=== PATIENT | female | born 1945 | race Asian ===

== ENCOUNTER 2024-05-28 09:44 | Day surgery (SDC) | payer MEDICARE ==
[~2024-05-28] VITALS: Ht 157.5 cm; Wt 53.2 kg
[~2024-05-28 09:44] MED LIST: Lactated Ringer's 1,000 ML IV ONE; Lidocaine 2% 5 ML SDV ONE; Lidocaine HCl/Pf 1% 5 ML VIAL ONE; Methylene Blue 1% 100 MG/10 ML VIAL ONE; propofoL 40 ML IV ONE
[2024-05-28] MEDS ORDERED: ELIQUIS5 M2 PO (10:52)
[2024-05-28] MEDS ORDERED: Lactated Ringer's 1,000 ML IV ONE ×2 (11:08)
[2024-05-28 12:35] VITALS: BP 92/67
== END 2024-05-28 12:39 | disposition home or self-care (01) ==
LOC: ORSCSDS 09:44
PROVIDERS: Surgery
PROC: 0DBL8ZX Excision of Transverse Colon, Via Natural or Artificial Opening Endoscopic, Diagnostic (ICD-10-PCS; principal; 2024-05-28 11:15)
PROC: 0DBM8ZX Excision of Descending Colon, Via Natural or Artificial Opening Endoscopic, Diagnostic (ICD-10-PCS; principal; 2024-05-28 11:15)
PROC: 0DBH8ZX Excision of Cecum, Via Natural or Artificial Opening Endoscopic, Diagnostic (ICD-10-PCS; principal; 2024-05-28 11:15)
PROC: 0DBK8ZX Excision of Ascending Colon, Via Natural or Artificial Opening Endoscopic, Diagnostic (ICD-10-PCS; principal; 2024-05-28 11:15)
DX: Z12.11 Encounter for screening for malignant neoplasm of colon (principal); Z86.0101 Personal history of adenomatous and serrated colon polyps; K63.5 Polyp of colon; D12.4 Benign neoplasm of descending colon; D12.3 Benign neoplasm of transverse colon; E78.5 Hyperlipidemia, unspecified; Z79.01 Long term (current) use of anticoagulants
CPT/HCPCS: 88305; J2001; J2003; J2704; J7120; Q9968

== ENCOUNTER 2024-12-12 09:38 | Day surgery (SDC) | payer MEDICARE ==
[~2024-12-12] VITALS: Ht 157.5 cm; Wt 54.3 kg
[~2024-12-12 09:38] MED LIST changes: +ELIQUIS5 M2 PO; -Lidocaine 2% 5 ML SDV ONE; -Methylene Blue 1% 100 MG/10 ML VIAL ONE; -propofoL 40 ML IV ONE; +propofoL 50 ML IV ONE
[2024-12-12] MEDS ORDERED: MULVITA (10:18)
[2024-12-12] MEDS ORDERED: Lactated Ringer's 1,000 ML IV ONE (10:53)
[2024-12-12 12:02] VITALS: BP 94/69
== END 2024-12-12 11:50 | disposition home or self-care (01) ==
LOC: ORSCSDS 09:38
DX: R10.12 Left upper quadrant pain (principal); K22.70 Barrett's esophagus without dysplasia; E78.5 Hyperlipidemia, unspecified; I48.91 Unspecified atrial fibrillation; Z79.01 Long term (current) use of anticoagulants
CPT/HCPCS: 88305; 88342; J2003; J2704; J7120

== ENCOUNTER 2025-04-04 11:23 | Day surgery (SDC) | payer MEDICARE ==
[2025-04-04] VITALS (11 sets, daily range): BP systolic 104–131; BP diastolic 66–95
[~2025-04-04] VITALS: Ht 152.4 cm; Wt 50.7 kg
[~2025-04-04 11:23] MED LIST changes: -Lactated Ringer's 1,000 ML IV ONE; -Lidocaine HCl/Pf 1% 5 ML VIAL ONE; +MULVITA; -propofoL 50 ML IV ONE
[2025-04-04] MEDS ORDERED: CefOXitin Sodium 2,000 MG in NS 100 ML IV SCH (11:50)
--- NOTE | 2025-04-04 12:32 | NUR ---
Ambulatory in Day SurgeryPre-Op teaching done. Pt verbalizes understanding. History, Chart, Medications and Allergies reviewed before start of procedure.Patient confirms NPO status and agrees with scheduled surgery. Pre-Op teaching done. Pt verbalizes understanding. Patient reports completing Chlorhexadine shower X2 prior to admission to hospital. Patient States Post-Procedure ride home has been arranged.
[2025-04-04] MEDS ORDERED: CeFAZolin Sodium 2,000 MG in NS 100 ML IV SCH (12:50)
[2025-04-04] MEDS ORDERED: Bupivacaine 0.5% W/EPI 1:200000 SDV 30 ML Vial ONE (13:12)
[2025-04-04] MEDS ORDERED: CeFAZolin Sodium 2,000 MG VIAL ONE (13:20)
[2025-04-04] MEDS ORDERED: FentaNYL Citrate 50 MCG/ML 2 ML Injection ONE ×2 (13:24→14:36)
[2025-04-04] MEDS ORDERED: Dexamethasone Sod Phos 10 MG/ML 1ML VIAL ONE (13:25)
[2025-04-04] MEDS ORDERED: Rocuronium Bromide 10 MG/ML 5ML Injection IV ONE (13:25)
[2025-04-04] MEDS ORDERED: Ondansetron HCl 2 MG / ML 2ML Vial IV PRN (13:45)
[2025-04-04] MEDS ORDERED: FentaNYL Citrate 50 MCG/ML 2 ML Injection IV PRN ×2 (13:45)
[2025-04-04] MEDS ORDERED: Albuterol 2.5 MG/3 ML VIAL INH PRN (13:45)
[2025-04-04] MEDS ORDERED: Phenylephrine HCl 100 MCG/ML-NS 10MLSYR (1MG/10ML) ONE (13:47)
[2025-04-04] MEDS ORDERED: HYDROmorphone HCl/Pf 1MG SYR IV PRN ×2 (13:50)
[2025-04-04] MEDS ORDERED: Sugammadex Sodium 200 MG/2ML SDV (100 MG/ML) ONE (14:56)
[2025-04-04] MEDS ORDERED: OxyCODONE 5 mg/Acetamin 325 mg TABLET PO PRN (15:20)
--- NOTE | 2025-04-04 16:04 | NUR ---
PT TO SDS. C/O ABD PAIN. UNABLE TO GIVE A NUMBER, STATES ITS "REALLY BAD". INCISION X4 C/D/I.
--- NOTE | 2025-04-04 16:28 | NUR ---
Discharge instructions reviewed with patient AND FAMILY. Patient verbalizes understanding. Copy given to patient to take home.
--- NOTE | 2025-04-04 16:58 | NUR ---
AMBULATED TO BATHRROOM, VOIDED. Patient up to Ambulate independently. Gait steady.
== END 2025-04-04 17:00 | disposition home or self-care (01) ==
LOC: ORSCMMR 11:23 → ORD 14:00 → ORSCMMR 14:00
PROVIDERS: Surgery
PROC: 3E0T3BZ Introduction of Anesthetic Agent into Peripheral Nerves and Plexi, Percutaneous Approach (ICD-10-PCS; principal; 2025-04-04 14:00)
PROC: 8E0W4CZ Robotic Assisted Procedure of Trunk Region, Percutaneous Endoscopic Approach (ICD-10-PCS; principal; 2025-04-04 14:00)
PROC: 0FT44ZZ Resection of Gallbladder, Percutaneous Endoscopic Approach (ICD-10-PCS; principal; 2025-04-04 14:00)
DX: K81.1 Chronic cholecystitis (principal); K82.8 Other specified diseases of gallbladder; R10.13 Epigastric pain; K66.0 Peritoneal adhesions (postprocedural) (postinfection); I48.91 Unspecified atrial fibrillation; Z79.01 Long term (current) use of anticoagulants; E78.5 Hyperlipidemia, unspecified; Z85.3 Personal history of malignant neoplasm of breast
CPT/HCPCS: 88304; 93005; 93010; A9270; J0690; J1100; J2371; J2704; J3010; J7120

== ENCOUNTER → 2025-06-24 | Outpatient (CLI) | payer MEDICARE | LOC: LAB 08:21 | DX: R10.9 Unspecified abdominal pain (principal); Z79.01 Long term (current) use of anticoagulants ==